=== PATIENT | female | born 1960 | race African-American/Black ===

== ENCOUNTER 2017-05-24 11:01 | Outpatient (CLI) | payer MEDICARE, OTHER ==
[2014-03-19 05:44] VITALS: BP 156/84
--- NOTE | 2017-05-24 13:55 | Diagnostic Imaging Report ---
[facility] [id number] [facility] [address] [id number] Report Submission Date: May 24, 2017 12:26:15 PM MANAGER OF [employer] [employer] Patient Study Name: LILIAN TORRES Date: May 24, 2017 11:56:52 AM MANAGER [facility] Modality Type: CR Gender: F Description: ABDOMEN : 56 Institution: [facility] Physician: DUC Examination: Obstruction series History: Abdominal discomfort Findings: 3 views obtained of the abdomen. Significant stool within the large bowel. Sigmoid colon appears to demonstrate a large amount of air - measuring 13 cm diameter. Degenerative of the osseous structures. Impression: Significant stool - constipation. Significant dilation of the sigmoid colon: correlate with any underlying bowel pathology. Electronically signed on May 24, 2017 12:26:15 PM MANAGER [facility] by: Willi HNELEY
== END 2017-05-24 11:02 ==
LOC: RAD 11:01
PROVIDERS: ATTEND Family Medicine
DX: K59.00 Constipation, unspecified (principal); E03.9 Hypothyroidism, unspecified
CPT/HCPCS: 74000

== ENCOUNTER 2017-07-25 23:20 | Emergency (ER) | payer MEDICARE, OTHER ==
--- NOTE | 2017-07-26 00:45 | ED Physician Documentation ---
General Adult - HISTORIAN Historian: patient, paramedics - HPI Stated Complaint: nose bleed Chief Complaint: General Adult Onset: minutes Timing: better Severity: mild Further Comments: yes (Pt is a 56 yo long-term resident who had a nose bleed earlier this evening. Pt had some blood in her mouth and spit out some clots. Pt's nose bleed has stopped and pt is in no distress at this time.) - ROS CONST: no problems EYES/ENT: other (nose bleed) CVS/RESP: none GI/: none MS/SKIN/LYMPH: none - PAST HX Past History: other (Anxiety, DM, HLD, HTN, Seizures) Allergies/Adverse Reactions: Allergies Allergy/AdvReac Type Severity Reaction Status Date / Time codeine Allergy Verified 07/25/17 23:33 meperidine HCl [From Demerol] Allergy Verified 07/25/17 23:33 morphine Allergy Verified 07/25/17 23:33 oxycodone [Oxycodone] Allergy Verified 07/25/17 23:33 oxycodone HCl [From Percodan] Allergy Verified 07/25/17 23:33 oxycodone terephthalate Allergy Verified 07/25/17 23:33 [From Percodan] Sulfa (Sulfonamide Allergy Verified 07/25/17 23:33 Antibiotics) Home Medications: Ambulatory Orders Medication Instructions Recorded Aspirin [Ankur] 81 mg PO DAILY 03/17/14 Atorvastatin Calcium [Lipitor] 20 mg PO HS 03/17/14 Baclofen 5 mg PO BID 03/17/14 Buspirone HCl [Buspar] 30 mg PO BID 03/17/14 Clonazepam 2 mg PO QID 03/17/14 Docusate Sodium [Colace] 100 mg PO BID 03/17/14 Ergocalciferol (Vitamin D2) 50,000 unit PO WEEK 03/17/14 [Vitamin D-2] Escitalopram Oxalate [Lexapro] 20 mg PO AM 03/17/14 Gabapentin [Neurontin] 800 mg PO HS 03/17/14 Metformin HCl [Glucophage] 500 mg PO D 03/17/14 Polyethylene Glycol 3350 [Miralax] 17 gm PO 1100 03/17/14 Ranitidine HCl [Zantac] 150 mg PO BID 03/17/14 Topiramate [Topamax] 50 mg PO BID 03/17/14 Travoprost (Benzalkonium) 1 drop EACHEYE HS 03/17/14 [Travatan 0.004% Eye Drop] Trolamine Salicylate [Sportscreme] 35.4 gm TP PRN PRN 03/17/14 amLODIPine BESYLATE [Norvasc] 5 mg PO 0900 03/17/14 levETIRAcetam [Keppra] 1,500 mg PO BID 03/17/14 Aripiprazole [Abilify] 2 mg PO D 07/25/17 Carbidopa/Levodopa [Carbidopa-Levo 1 tab PO D 07/25/17 25-100 mg Odt] Divalproex Sodium [Depakote] 500 mg PO TID 07/25/17 Dorzolamide HCl/Timolol Maleat 1 drop EACHEYE TID 07/25/17 [Cosopt Eye Drops] Levocarnitine [l-Carnitine] 100 mg PO TID 07/25/17 Levothyroxine Sodium 75 mcg PO D 07/25/17 [Levothyroxine Sodium] Linaclotide [Linzess] 290 mcg PO D 07/25/17 Oxybutynin Chloride [Ditropan] 10 mg PO TID 07/25/17 amLODIPine BESYLATE [Norvasc] 10 mg PO D 07/25/17 - SOCIAL HX Smoking History: non-smoker - FAMILY HX Family History: No - VITAL SIGNS Vital Signs: Vital Signs Temp Pulse Resp BP Pulse Ox 97.9 F 80 18 182/78 93 07/25/17 23:21 07/25/17 23:21 07/25/17 23:21 07/25/17 23:21 07/25/17 23:21 - REVIEWED ASSESSMENTS Nursing Assessment Reviewed: Yes Vitals Reviewed: Yes Progress - Progress Progress: epistaxis resolved General Adult Physical Exam - PHYSICAL EXAM GENERAL APPEARANCE: no distress EENT: pharynx normal (small amount of dried blood seen in mouth), other (small amount of dried blood in L nares; no active bleeding) RESPIRATORY: no resp distress, chest non-tender CVS: reg rate & rhythm, heart sounds normal ABDOMEN: soft, no organomegaly BACK: normal inspection, no CVA tenderness SKIN: warm/dry EXTREMITIES: non-tender NEURO: oriented X3 Discharge Clincal Impression: epistaxis, resolved Referrals: Primary Doctor,No [Primary Care Provider] - Condition: Stable Disposition: 04 XFER LONGTERM Decision to Admit: NO Decision Time: 00:48
[2017-07-26 01:10] VITALS: BP 144/63
== END 2017-07-26 00:27 ==
LOC: ED 23:20
DX: R04.0 Epistaxis (principal)
CPT/HCPCS: 99282